=== PATIENT | male | born 1985 | race Caucasian/White ===

== ENCOUNTER 2018-01-09 14:12 | Emergency (ER) | payer OTHER, BC ==
[2018-01-09] MEDS: IBUPROFEN 600 MG TAB PO (14:46)
== END 2018-01-09 15:23 | disposition home or self-care (01) ==
LOC: M ED 14:12
DX: S93.602A Unspecified sprain of left foot, initial encounter (principal); W00.9XXA Unspecified fall due to ice and snow, initial encounter; Y92.89 Other specified places as the place of occurrence of the external cause
CPT/HCPCS: 73630

== ENCOUNTER → 2018-12-07 | Outpatient (REF) | payer OTHER ==
[~2018-12-07] MED LIST: IBUP80TA PO
== END ==
LOC: M LAB REF 17:22
PROVIDERS: ATTEND Physician Assistant
DX: J02.9 Acute pharyngitis, unspecified (principal)

== ENCOUNTER 2018-12-08 13:27 | Emergency (ER) | payer OTHER ==
[~2018-12-08] VITALS: Ht 188 cm; Wt 91.9 kg
[2018-12-08] MEDS ORDERED: IBUP80TA PO (13:54)
[2018-12-08] MEDS ORDERED: NS 1,000 ML IV ONE (15:15)
[2018-12-08] MEDS ORDERED: GI COCKTAIL 50ML BTL(HYOSCYAMINE/MAALOX/LIDOCAINE VISCOUS)(1:3:1) PO ONE (15:30)
[2018-12-08 15:51] LABS: BASO % 0.2 % (0.0-1.0); EOS # 0.1 10^3/uL (0.0-0.50); EOS % 0.7 % (0.0-3.0); HEMATOCRIT 44.1 % (42.0-52.0); HEMOGLOBIN 14.9 g/dl (13.5-17.5); LYMPH # 1.5 10^3/uL (1.5-4.5); LYMPH % 15.9 % (24.0-44.0); MEAN CORPUSCULAR HEMOGLOBIN 28.8 pg (27.0-33.0); MEAN CORPUSCULAR HGB CONC 33.8 g/dl (32.0-36.5); MEAN CORPUSCULAR VOLUME 85.3 fl (80.0-96.0); MONO # 0.8 10^3/uL (0.0-0.8); MONO % 9.1 % (0.0-5.0); NEUTROPHILS # 6.8 10^3/uL (1.8-7.7); NEUTROPHILS % 73.7 % (36.0-66.0); PLATELET COUNT, AUTOMATED 186 10^3/uL (150-450); RED BLOOD COUNT 5.17 10^6/uL (4.30-6.10); WHITE BLOOD COUNT 9.2 10^3/uL (4.0-10.0)
[2018-12-08] MEDS ORDERED: MORPHINE 2 MG/ML 1ML SYRINGE (J2270) IV ONE (16:00)
[2018-12-08] MEDS ORDERED: ONDANSETRON 4MG/2ML VIAL (J2405) IV ONE (16:00)
--- NOTE | 2018-12-08 16:15 | REP ---
Clinical: cough . Technique: PA and lateral. Comparison: 07/14/2015 Findings: The mediastinum and cardiothymic silhouette are normal. The lung volumes are symmetric and normal. No acute consolidation, effusion, or pneumothorax. Skeletal structures are intact and normal for age. Impression: No focal consolidation. Electronically Signed by Lyle Sotomayor MD 12/08/2018 04:07 P
[2018-12-08 16:24] LABS: ALT/SGPT 23 U/L (12-78); BLOOD UREA NITROGEN 13 MG/DL (7-18); CALCIUM LEVEL 9.2 MG/DL (8.5-10.1); CARBON DIOXIDE LEVEL 30 MEQ/L (21-32); CHLORIDE LEVEL 102 MEQ/L (98-107); CREATININE FOR GFR 0.93 MG/DL (0.70-1.30); GLOMERULAR FILTRATION RATE > 60.0 (>60); GLUCOSE, FASTING 103 MG/DL (70-100); POTASSIUM SERUM 3.9 MEQ/L (3.5-5.1); SODIUM LEVEL 138 MEQ/L (136-145)
[2018-12-08 16:25] LABS: ALBUMIN 3.9 GM/DL (3.2-5.2); BILIRUBIN,DIRECT 0.1 MG/DL (0.0-0.2); BILIRUBIN,TOTAL 0.5 MG/DL (0.2-1.0); TOTAL PROTEIN 8.8 GM/DL (6.4-8.2)
[2018-12-08 16:51] LABS: INFLUENZA A AMPLIFICATION POSITIVE (NEGATIVE); INFLUENZA B AMPLIFICATION NEGATIVE (NEGATIVE)
[2018-12-08 17:01] VITALS: BP 131/81
--- NOTE | 2018-12-08 17:27 | REP ---
Clinical: Swelling. Retropharyngeal abscess. Technique: Axial contrast enhanced images from the skull base to the thoracic inlet with coronal and sagittal re-formations using 100 ml Isovue 370 intravenous contrast material. Findings: The nasopharynx, oropharynx, and hypopharynx including associated soft tissues are symmetric, intact, and normal. No evidence for mass, abnormal fluid collection, or abscess. The airway remains patent and midline. Visualized sinuses and mastoid air cells are clear. The parotid, submandibular, and submental glands are normal/symmetric. Orbits are symmetric and intact. The vascular structures are symmetric and normal. The osseous structures are intact. No significant adenopathy is appreciated. Impression: Normal contrast enhanced CT of the neck. Electronically Signed by Lyle Sotomayor MD 12/08/2018 05:18 P
== END 2018-12-08 17:39 | disposition home or self-care (01) ==
LOC: M ED 13:27
DX: J10.1 Influenza due to other identified influenza virus with other respiratory manifestations (principal)
CPT/HCPCS: 36415; 70491; 71046; 80048; 80076; 83605; 85025; 87040; 87502; 87880; 96361; 96374; 96375; 99284; J2270; J2405